=== PATIENT | female | born 1980 | race Caucasian/White ===

== ENCOUNTER 2020-05-26 18:53 | Emergency (ER) | payer OTHER ==
[2020-05-26 18:58] VITALS: BP 105/67; PULSE 76; TEMP 98; BMI 30.9
--- NOTE | 2020-05-26 19:15 | PDOC ---
History of Present Illness - General Chief Complaint: Vaginal Sxs Stated Complaint: POSSIBLE MISCARRIAGE Time Seen by Provider: 05/26/20 19:15 History Source: Patient - History of Present Illness Initial Comments: 05/26/20 20:08 40F at approx 10 weeks gestation w/hx antiphopholipid syndrome p/w one day of acute onset vaginal bleeding, abdominal cramping. She reports that the bleeding began today and she noted the passage of large blood clots, alongside mild abdominal cramping. She reports feeling similar to prior miscarriages. She reports that during her 2 full term pregnancies she was on a blood thinner, but is not on a blood thinner at this time. She does not currently follow with synoptic meteorologist. Past History - Medical History Allergies/Adverse Reactions: Allergies Allergy/AdvReac Type Severity Reaction Status Date / Time No Known Allergies Allergy Verified 05/26/20 18:58 Home Medications: Ambulatory Orders Cephalexin Monohydrate [Keflex -] 500 mg PO BID #28 capsule 05/26/20 - Reproductive History Is Patient Now?: Yes - Psycho-Social/Smoking History Smoking History: Unknown if ever smoked Review of Systems - Review of Systems Able to Perform ROS?: Yes Comments:: 05/26/20 20:16 GENERAL/CONSTITUTIONAL: No fever or chills. No weakness. HEAD, EYES, EARS, NOSE AND THROAT: No change in vision. No ear pain or discharge. No sore throat. CARDIOVASCULAR: No chest pain or shortness of breath RESPIRATORY: No cough, wheezing, or hemoptysis. GASTROINTESTINAL: No nausea, vomiting, diarrhea or constipation. GENITOURINARY: No dysuria, frequency, or change in urination. MUSCULOSKELETAL: No joint or muscle swelling or pain. No neck or back pain. SKIN: No rash NEUROLOGIC: No headache, vertigo, loss of consciousness, or change in strength/sensation. ENDOCRINE: No increased thirst. No abnormal weight change HEMATOLOGIC/LYMPHATIC: No anemia, easy bleeding, or history of blood clots. ALLERGIC/IMMUNOLOGIC: No hives or skin allergy. *Physical Exam - Vital Signs Last Vital Signs Temp Pulse Resp BP Pulse Ox 98 F 76 16 105/67 100 05/26/20 18:56 05/26/20 18:56 05/26/20 18:56 05/26/20 18:56 05/26/20 18:56 - Physical Exam 05/26/20 20:19 GENERAL: Awake, alert, and fully oriented, in no acute distress HEAD: No signs of trauma, normocephalic, atraumatic EYES: PERRLA, EOMI, sclera anicteric, conjunctiva clear ENT: Auricles normal inspection, hearing grossly normal, nares patent, orop harynx clear without exudates. Moist mucosa NECK: Normal ROM, supple, no lymphadenopathy, JVD, or masses LUNGS: No distress, speaks full sentences, clear to auscultation bilaterally HEART: Regular rate and rhythm, normal S1 and S2, no murmurs, rubs or gallops, peripheral pulses normal and equal bilaterally. ABDOMEN: Soft, nontender, normoactive bowel sounds. No guarding, no rebound. No masses EXTREMITIES : Normal inspection, Normal range of motion, no edema. No clubbing or cyanosis NEUROLOGICAL: Cranial nerves II through XII grossly intact. Normal speech, normal gait, no focal sensorimotor deficits SKIN: Warm, Dry, normal turgor, no rashes or lesions noted ED Treatment Course - LABORATORY CBC & Chemistry Diagram: 05/26/20 20:00 05/26/20 20:00 Medical Decision Making - Medical Decision Making 05/26/20 20:21 40F at approx 10 weeks gestation by LMP, hx antiphospholipid syndrome p/w acute onset vaginal bleeding with large clots, concerning for spontaneous . She is not on AC and does not currently follow with synoptic meteorologist. Plan: CBC CMP Type and screen Hcg quant UA Urine culture Bedside transabdominal US Transvaginal US for eval Dispo: Discharge with close synoptic meteorologist follow up for beta log 05/26/20 21:33 TVUS - No IUP or gestational sac visualized. On pelvic exam, pooled blood in vaginal vault, cervical os closed, no adnexal or cervical motion tenderness. Type and screen - O+. No need for rhogam administration. Plan for discharge keflex for UTI, with close synoptic meteorologist follow up for repeat beta hcg. Discharge - Discharge Information Problems reviewed: Yes Clinical Impression/Diagnosis: Spontaneous Condition: Stable Disposition: HOME - Admission No - Follow up/Referral Referrals: Ash Schumacher [Non Staff, Medical] - Aaron Trevizo MD [Staff Physician] - - Patient Discharge Instructions Patient Printed Discharge Instructions: Dealing With Miscarriage, DI for Miscarriage Additional Instructions: You were seen in the ER for vaginal bleeding during . Your symptoms may represent a spontaneous miscarriage. It is very important that you follow up with synoptic meteorologist as soon as possible, in the next 2-3 days. Call to set the ap pointment as soon as possible, as they will need to repeat bloodwork. Return to the ER in 2 days to repeat bloodwork if you are not able to see the ob.customer engagement specialist in 48 hours. Return to the ER if you develop high fevers, difficulty breathing, chest pain, weakness, or worsening abdominal pain or bleeding. - Post Discharge Activity
--- NOTE | 2020-05-26 19:59 | PDOC ---
Documentation entered by Sheila Isabel SCRIBE, acting as scribe for Maribel Macedo DO. Maribel Macedo, : This documentation has been prepared by the Maame cruz Brenda, SCRIBE, under my direction and personally reviewed by me in its entirety. I confirm that the documentation accurately reflects all work, treatment, procedures, and medical decision making performed by me. Attending Attestation - Resident Resident Name: Michael Resendiz - ED Attending Attestation I have performed the following: I have examined & evaluated the patient, The case was reviewed & discussed with the resident, I agree w/resident's findings & plan, Exceptions are as noted - HPI HPI: 05/26/20 20:10 The patient is a 40 year old female () with a significant PMH of anti- phospholipic syndrome, prior miscarriages who presents to the ED for evaluation of vaginal bleeding. Patient is now endorsing large clots. Allergies: NKA - Physicial Exam PE: 05/26/20 20:04 GENERAL: Awake, alert, and fully oriented, in no acute distress NECK: Normal ROM, supple, no lymphadenopathy, JVD, or masses LUNGS: Breath sounds equal, clear to auscultation bilaterally. No wheezes, and no crackles HEART: Regular rate and rhythm, normal S1 and S2, no murmurs, rubs or gallops ABDOMEN: (+) Mid abdomen scar from gastric sleeve. Soft, nontender, normoactive bowel sounds. No guarding, no rebound. No masses EXTREMITIES: Normal range of motion, no edema. No clubbing or cyanosis. No cords, erythema, or tenderness NEUROLOGICAL: Cranial nerves II through XII grossly intact. Normal speech, normal gait SKIN: Warm, Dry, normal turgor, no rashes or lesions noted. 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 Trevizo will treat for uti 05/26/20 22:08 Rh + stable for dc to home Discharge - Discharge Information Problems reviewed: Yes Clinical Impression/Diagnosis: Spontaneous Condition: Stable Disposition: HOME - Follow up/Referral Referrals: Puneet Nice MD [Staff Physician] - Ash Schumacher [Non Staff, Medical] - Dipika Guevara MD [Staff Physician] - Aaron Trevizo MD [Staff Physician] - - Patient Discharge Instructions Patient Printed Discharge Instructions: Dealing With Miscarriage, DI for Miscarriage Additional Instructions: You were seen in the ER for vaginal bleeding during . Your symptoms may represent a spontaneous miscarriage. It is very important that you follow up w ith charge account identification clerk as soon as possible, in the next 2-3 days. Call to set the appointment as soon as possible, as they will need to repeat bloodwork. Return to the ER if you develop high fevers, difficulty breathing, chest pain, weakness, or worsening abdominal pain or bleeding. - Post Discharge Activity
[2020-05-26 20:23] LABS: HEMATOCRIT 37.2 % (32.4-45.2); HEMOGLOBIN 12.6 GM/dL (10.7-15.3); MCH 30.7 pg (25.7-33.7); MCHC 33.8 g/dl (32.0-36.0); MEAN CELL VOLUME 90.8 fl (80-96); PLATELET COUNT 344 K/MM3 (134-434); RDW 14.5 % (11.6-15.6); WHITE BLOOD COUNT 7.5 K/mm3 (4.0-10.0)
[2020-05-26 20:38] LABS: EPI CELLS >36 /uL (0-25.1); HYALINE CASTS 11 /uL (0-3.1); PH,URINE 5.5 (5.0-8.0); URINE APPEARANCE CLOUDY; URINE BACTERIA 125 /uL (0-1359); URINE BILIRUBIN 1+ (NEGATIVE); URINE COLOR ORANGE; URINE GLUCOSE (UA) NEGATIVE (NEGATIVE); URINE KETONE 2+ (NEGATIVE); URINE LEUK ESTERASE 1+ (NEGATIVE); URINE NITRITE NEGATIVE (NEGATIVE); URINE PROTEIN 2+ (NEGATIVE); URINE RBC 12049 /uL (0-23.9); URINE WBC 99 /uL (0-25.8)
[2020-05-26 20:55] LABS: ALBUMIN 3.6 g/dl (3.4-5.0); BILIRUBIN,TOTAL 0.2 mg/dL (0.2-1); BLOOD UREA NITROGEN 4.8 mg/dL (7-18); CALCIUM 9.2 mg/dL (8.5-10.1); CREATININE 0.6 mg/dL (0.55-1.3); POTASSIUM 3.9 mmol/L (3.5-5.1); TOT PROT 7.7 g/dl (6.4-8.2)
[2020-05-26] MEDS ORDERED: CEPHALEXIN MONOHYDRATE 500 MG CAPSULE (UD) PO ONE (20:59)
[2020-05-26] MEDS ORDERED: CEPHALEXIN MONOHYDRATE 500 MG CAPSULE (UD) ONE (21:03)
--- NOTE | 2020-05-30 19:00 | PATH ---
Surgical Pathology Report Patient Name: BRENDA SUMNER Med. Rec. #: [id number] /Age/Gender: 1980 (Age: 40) / F Account: [id number] Location: EMERGENCY ROOM Taken: 05/26/2020 Received: 05/27/2020 Reported: 05/30/2020 Physicians: Maribel Macedo DO Specimen(s) Received PRODUCTS OF CONCEPTION Clinical History Vaginal bleeding with cramps began 05/26/20, patient approximately 10 weeks LMP 03/30/20 Final Diagnosis PRODUCTS OF CONCEPTION, DILATION AND CURETTAGE: IMMATURE CHORIONIC VILLI AND DECIDUA CONSISTENT WITH PRODUCTS OF CONCEPTION. Electronically Signed Nicole Hickman M.D. Gross Description Received fresh, labeled with the patient's name and indicated on the requisition to be products of conception, is a 10.0 x 4.5 x 1.5 cm hairston-pink portion of soft tissue, consistent with products of conception. Villous tissue is identified. No somatic tissue is identified. Machine Feeder Raw Stock sections are submitted in one cassette. /05/27/2020 saudi/05/27/2020
== END 2020-05-26 22:40 | disposition home or self-care (01) ==
LOC: JER 18:53
DX: O03.9 Complete or unspecified spontaneous abortion without complication (principal)
CPT/HCPCS: 36415; 76830-TC; 80053; 81003; 84702; 85027; 86850; 86900; 86901; 87086; 88305-TC; 99284-25

== ENCOUNTER 2021-04-25 22:36 | Emergency (ER) | payer OTHER ==
[2021-04-25 22:44] VITALS: TEMP 98.3; BMI 32.8
[2021-04-25 23:50] LABS: BASO % 0.2 % (0-2.0); HEMATOCRIT 26.4 % (32.4-45.2); HEMOGLOBIN 8.8 GM/dL (10.7-15.3); LYMPH % 19.3 % (8-40); MCH 24.9 pg (25.7-33.7); MCHC 33.1 g/dl (32.0-36.0); MEAN CELL VOLUME 75.1 fl (80-96); MEAN PLT VOLUME 8.2 fl (7.5-11.1); MONO % 6.3 % (3.8-10.2); NEUT % 73.2 % (42.8-82.8); PLATELET COUNT 202 10^3/uL (134-434); RBC 3.52 M/mm3 (3.60-5.2); RDW 20.9 % (11.6-15.6); WHITE BLOOD COUNT 10.2 K/mm3 (4.0-10.0)
[2021-04-25 23:56] LABS: INR 0.95 (0.83-1.09); PROTHROMBIN TIME (PATIENT) 11.7 SEC (9.7-13.0)
[2021-04-25 23:58] LABS: ACTIVATED PTT 26.5 SECONDS (25.2-36.5)
[2021-04-26 00:09] LABS: CALCIUM 8.4 mg/dL (8.5-10.1)
[2021-04-26 00:10] LABS: ALBUMIN 2.8 g/dl (3.4-5.0); BLOOD UREA NITROGEN 4.9 mg/dL (7-18)
[2021-04-26 00:13] LABS: CREATININE 0.3 mg/dL (0.55-1.3)
[2021-04-26 00:15] LABS: BILIRUBIN,TOTAL 0.1 mg/dL (0.2-1)
[2021-04-26] MEDS ORDERED: LACTATED RINGERS SOLUTION 1000 ML INFUS.BAG IV ONE (01:12)
[2021-04-26 01:18] LABS: TOT PROT 6.6 g/dl (6.4-8.2)
[2021-04-26 01:55] LABS: ANISOCYTOSIS 2+; MACROCYTOSIS 0; OVALOCYTE 1+; PLATELET ESTIMATE NORMAL
[2021-04-26 02:05] LABS: EPI CELLS 20 /uL (0-25.1); HYALINE CASTS 0 /uL (0-3.1); PH,URINE 7.5 (5.0-8.0); URINE APPEARANCE CLEAR; URINE BACTERIA 88 /uL (0-1359); URINE BILIRUBIN NEGATIVE (NEGATIVE); URINE COLOR YELLOW; URINE GLUCOSE (UA) NEGATIVE (NEGATIVE); URINE KETONE NEGATIVE (NEGATIVE); URINE LEUK ESTERASE NEGATIVE (NEGATIVE); URINE NITRITE NEGATIVE (NEGATIVE); URINE PROTEIN NEGATIVE (NEGATIVE); URINE RBC 5 /uL (0-23.9); URINE WBC 8 /uL (0-25.8)
[2021-04-26 02:44] VITALS: BP 107/67; PULSE 80
== END 2021-04-26 02:49 | disposition home or self-care (01) ==
LOC: JER 22:36
DX: O20.0 Threatened abortion (principal)
CPT/HCPCS: 36415; 76817-TC; 80053; 81003; 84702; 85025; 85610; 85730; 86850; 86900; 86901; 87086; 99284-25